=== PATIENT | male | born 1955 | race Caucasian/White ===

== ENCOUNTER 2017-08-11 15:11 | Emergency (ER) | payer OTHER ==
[~2017-08-11] VITALS: Ht 182.9 cm; Wt 127.0 kg
[~2017-08-11 15:11] MED LIST: ACCUPRIL40 MG PO; ACETAMINOPHEN-1 EAC2 ORAL; ASPIR-LOW81 MG PO; BACTRIM DS TAB1 EAC1 ORAL; CIPRO500 MG PO; CIPROFLOXACIN500 M2 ORAL; CLOTRIMAZOLE15 GM TOPIC; DIFLUCAN100 MG ORAL; FLOMAX0.4 MG ORAL; IBUPROFEN600 MG ORAL; KEFLEX500 MG ORAL; LIPITOR40 MG PO; LOTRISONE CREAM15 GM TP; METFORMIN HCL1000 MG PO; METOPROLOL SUCC50 MG PO; NAPHCON-A EYE D15 ML OP; NORCO 10-325 T1 EACH ORAL; NORCO 5-325 TA1 EACH ORAL; PERCOCET 5-3251 EACH ORAL
[2017-08-11 15:23] VITALS: BP 151/88
[2017-08-11] MEDS ORDERED: Methocarbamol 750mg tab ORAL ONE (15:45)
[2017-08-11] MEDS ORDERED: Ketorolac 30mg Inj IM ONE (15:45)
[2017-08-11] MEDS ORDERED: NORCO 5-325 TA1 EACH ORAL (15:49)
[2017-08-11] MEDS ORDERED: ROBAXIN-750750 MG PO (15:49)
[2017-08-11] MEDS ORDERED: TYLENOL325 MG ORAL (15:49)
--- NOTE | 2017-08-11 15:58 | Emergency Room Report ---
History of Present Illness General Chief Complaint: Pain Source: Patient Present Illness HPI 61-year-old male p/w right lower back/buttocks pain for 7 days. Patient states pain starts after walking a long distance.. Pain is localized to right lower back, sharp in nature, radiating down leg. Movement worsens pain. There are no alleviating factors. Patient has not taken any pain medication Patient has experienced this similar pain in the past. Denies trauma. Denies lower extremity weakness/numbness, no bowel/bladder retention or incontinence, saddle anesthesia. Denies fever, chills, abdominal pain, n/v, dysuria/hematuria. No history of IVDA Allergies: Coded Allergies: No Known Allergies (Unverified , 04/16/12) Patient History Past Medical History: see triage record Past Surgical History: none Pertinent Family History: none Reviewed Nursing Documentation: PMH: Agreed, PSxH: Agreed Nursing Documentation-PMH Past Medical History: No History, Except For Hx Hypertension: Yes Hx Pacemaker: No Hx Asthma: No Hx COPD: No Hx Diabetes: Yes Hx Cancer: No Hx Gastrointestinal Problems: Yes - kidney stones Hx Dialysis: No History Of Psychiatric Problem: No Hx Neurological Problems: No Hx Cerebrovascular Accident: No Hx Seizures: No Review of Systems All Other Systems: negative except mentioned in HPI Physical Exam Vital Signs Date Time Temp Pulse Resp B/P (MAP) Pulse Ox O2 Delivery O2 Flow Rate FiO2 08/11/17 15:23 98.0 86 14 151/88 94 Room Air 98.1 Sp02 EP Interpretation: reviewed, normal General Appearance: normal inspection, well appearing, no apparent distress, alert, GCS 15, non-toxic Head: normocephalic, atraumatic Eyes: bilateral eye normal inspection, bilateral eye PERRL, bilateral eye EOMI ENT: normal ENT inspection, normal pharynx, normal voice, moist mucus membranes Neck: normal inspection, full range of motion, supple Respiratory: normal inspection, lungs clear, normal breath sounds, no respiratory distress, no retraction, no wheezing, speaking full sentences, chest symmetrical Cardiovascular #1: normal inspection, regular rate, rhythm, normal capillary refill Cardiovascular #2: 2+ radial (R), 2+ radial (L) Gastrointestinal: normal inspection, non tender, soft, non-distended, no guarding Musculoskeletal: other - Right lower lumbar paraspinal tenderness, no midline tenderness, full range of motion all extremities, gait normal. Patient able to bear wt on both limbs Neurologic: normal inspection, alert, oriented x3, responsive, motor strength/ tone normal, sensory intact, normal gait, speech normal Psychiatric: normal inspection, judgement/insight normal, memory normal Skin: normal inspection, normal color, no rash, warm/dry, well hydrated, normal turgor Medical Decision Making Diagnostic Impression: Primary Impression: Back pain ER Course 61-year-old male p/w right lower back pain for one week DDX: Likely musculoskeletal back pain vs. muscular strain vs. sciatica Lumbar fracture is unlikely given patients age, no midline tenderness, no history of trauma, and that patient is ambulatory. Therefore, at this time no imaging is indicated Serious diagnoses such as cord compression, epidural abscess is unlikely in this patient given the clinical scenario and abscess of neurological symptoms or findings. Patient appears nontoxic. Plan: Toradol, robaxin ER course: Patient has remained nontoxic appearing and ambulatory in the ED. Pain improved w/ medications Disposition: Patient will be discharged to home with prescription of [place], Tylenol, and robaxin. Patient cautioned of the effects of robaxin including possible impairment of physical or mental abilities. Patient was instructed to refrain from operating machinery or driving. Patient is also cautioned on the GI effects of motrin and to take sparingly. Patient verbalized understanding. Strict precautions discussed with patient on when to emergently return to the ED which includes severe/worsening back pain, leg weakness/numbness, urinary retention/incontinence, fever or chills, which may indicate severe illness. Patient is to follow up with their PMD within 5 days. Patient agrees with plan. Please note that this Emergency Department Report was dictated using [employer] technology software, occasionally this can lead to erroneous entry secondary to interpretation by the dictation equipment. Last Vital Signs Date Time Temp Pulse Resp B/P (MAP) Pulse Ox O2 Delivery O2 Flow Rate FiO2 08/11/17 15:52 98.0 08/11/17 15:23 86 14 151/88 94 Room Air Disposition: HOME, SELF-CARE Condition: Improved Scripts Methocarbamol* (ROBAXIN-750*) 750 Mg Tablet 750 MG PO QID, #28 TAB 0 Refills Prov: Teena Hicks M.D. 08/11/17 Acetaminophen (Tylenol) 325 Mg Tablet 650 MG ORAL Q6H Y for Prn Pain/Headache/Temp > 101, #30 TAB 0 Refills Prov: Teena Hicks M.D. 08/11/17 Hydrocodone Bit/Acetaminophen 5-325* (NORCO 5-325*) 1 Each Tablet 1 TAB ORAL Q6H Y for For Pain, #10 TAB 0 Refills Prov: Teena Hicks M.D. 08/11/17 Patient Instructions: Back Pain, Adult, [id number] Additional Instructions: PLEASE FOLLOW UP WITH YOUR DOCTOR IN 1 WEEK YOU MAY NEED PHYSICAL THERAPY Teena Hicks M.D. Aug 11, 2017 15:58
[2017-08-11 16:00] VITALS: BP 151/88
== END 2017-08-11 16:00 | disposition home or self-care (01) ==
LOC: EMR 15:35
DX: M54.5 Low back pain (principal); E11.9 Type 2 diabetes mellitus without complications; I10 Essential (primary) hypertension; Z87.442 Personal history of urinary calculi
CPT/HCPCS: 96372; 99283; J1885

== ENCOUNTER 2017-09-02 16:09 | Emergency (ER) | payer OTHER ==
[~2017-09-02] VITALS: Ht 182.9 cm; Wt 127.0 kg
[~2017-09-02 16:09] MED LIST changes: +ROBAXIN-750750 MG PO; +TYLENOL325 MG ORAL
[2017-09-02 16:25] VITALS: BP 137/76
--- NOTE | 2017-09-02 16:28 | Emergency Room Report ---
History of Present Illness General Chief Complaint: Pain Source: Patient Present Illness HPI 61 yo male patient presents to ER complaining of right lower back and butt pain and difficulty urinating x1 month. Patient reports previously seen in ER 2 weeks ago and diagnosed with sciatica. Patient reports previously had prostate checked out; states everything normal. Reports problem with urinating if he thinks to hard about it; reports no difficulty with urinating if he is relaxed. Denies dysuria, hematuria, discharge, rash. Reports back back and butt pain that radiates down to his knee. Denies lower leg or foot pain. Reports pain worsens with walking. Reports pain feels better when sitting, laying down or not moving. Denies recent weight loss or drug use. Denies chest pain, SOB, fever, abdominal pain. Denies hx of trauma. Denies calf pain. Allergies: Coded Allergies: No Known Allergies (Unverified , 04/16/12) Patient History Past Medical History: see triage record Reviewed Nursing Documentation: PMH: Agreed, PSxH: Agreed Nursing Documentation-PMH Hx Hypertension: Yes Hx Pacemaker: No Hx Asthma: No Hx COPD: No Hx Diabetes: Yes Hx Cancer: No Hx Gastrointestinal Problems: Yes - kidney stones Hx Dialysis: No Hx Neurological Problems: No Hx Cerebrovascular Accident: No Hx Seizures: No Review of Systems All Other Systems: negative except mentioned in HPI Physical Exam Vital Signs Date Time Temp Pulse Resp B/P (MAP) Pulse Ox O2 Delivery O2 Flow Rate FiO2 09/02/17 16:16 97.1 77 22 137/76 95 Room Air 97.2 Sp02 EP Interpretation: reviewed, normal General Appearance: well appearing, no apparent distress, alert, GCS 15 Head: normocephalic, atraumatic Eyes: bilateral eye normal inspection, bilateral eye PERRL ENT: hearing grossly normal, normal pharynx, no angioedema, normal voice, uvula midline, moist mucus membranes Neck: full range of motion Respiratory: lungs clear, normal breath sounds, no rhonchi, no respiratory distress, no accessory muscle use, no wheezing, speaking full sentences Cardiovascular #1: regular rate, rhythm, normal capillary refill, edema Cardiovascular #2: 2+ dorsalis pedis (R), 2+ dorsalis pedis (L) Gastrointestinal: non tender, soft, no mass, non-distended, no guarding, no rebound Genitourinary: no CVA tenderness Musculoskeletal: back normal, digits/nails normal, gait/station normal, normal range of motion, non-tender, no calf tenderness, pelvis stable, Reynaldo's Sign negative, other Neurologic: alert, oriented x3, responsive, motor strength/tone normal, SLR negative, sensory intact Psychiatric: mood/affect normal Skin: no rash Lymphatic: no adenopathy Medical Decision Making PA Attestation Dr. Arnold is my supervising Physician whom patient management has been discussed with. Diagnostic Impression: Primary Impression: UTI Additional Impressions: Leg edema Back pain Prostate hypertrophy Nephrolithiasis ER Course Pt presents to ED c/o difficulty urinating and back pain. DDX considered but are not limited to BPH, prostatitis, cystitis, pyelonephritis , pyelonephritis, stenosis, sprain, strain, fracture. VITAL SIGNS WNL, patient is afebrile. PE patient has full ROM of hip and leg. Reports pain worse with walking; pain radiates down leg to knee. Ordered UA and CT abdomen/pelvis. ER COURSE: CT shows multiple findings. Degenerative changes of lumbar spine and hips. Followup with ortho for pain management. Right nephrolithiasis. Nonspecific perinephric stranding. Bladder calcifications, may be chronic or recently passed stones. Mildly thickened bladder which may be chronic versus cystitis. Prominent prostate. Followup with primary care provider and urology. UA shows possible infection. With CT findings, will treat with abx for infection. Followup with urology. Results discussed with patient. Bilateral lower leg edema. No erythema, negative Homans sign, no calf pain, no chest pain, SOB, or hemoptysis, low suspicion for DVT. Followup with cardiology and vascular surgeon for further treatment and diagnosis. Patient seen and evaluated by Dr. Arnold, agrees with treatment and plan. Patient provided with pain medication prior to discharge. Toradol and Lidocaine patch. Patient reports he will walk home. DISCHARGE: Rx provided for Lidocaine patches Rx provided for Keflex for UTI Take Tylenol at home as previously prescribed for pain treatment. At this time pt is stable for d/c to home. Patient resting comfortably, in no acute distress, nontoxic appearing, laughing and talking without difficulty. CT results provided to patient. Will provide with patient care instructions and any necessary prescriptions. Patient to take BPH medications as instructed. Patient instructed to follow up with PCP within 3 -5 days and seek referral to urologist. Instructed patient to followup with ortho for further treatment and referral. Followup with cardiology and vascular surgeon for leg edema. Continue to wear compression stockings. Care plan and follow-up instructions provided. Patient questions asked and answered. Patient reports understanding and agreement to treatment plan. ER precautions given. Patient instructed to return to ER immediately for any new or worsening of symptoms including but not limited to fever, chest pain, shortness of breath, unable to urinate, hematuria. Labs Test 09/02/17 16:25 Urine Color Yellow Urine Appearance Clear Urine pH 5 (4.5-8.0) Urine Specific [place] 1.020 (1.005-1.035) Urine Protein 3+ (NEGATIVE) Urine Glucose (UA) 3+ (NEGATIVE) Urine Ketones Negative (NEGATIVE) Urine Occult Blood 2+ (NEGATIVE) Urine Nitrite Negative (NEGATIVE) Urine Bilirubin Negative (NEGATIVE) Urine Urobilinogen 1 MG/DL (0.0-1.0) Urine Leukocyte Esterase Negative (NEGATIVE) Urine RBC 5-10 /HPF (0 - 0) Urine WBC 0-2 /HPF (0 - 0) Urine Squamous Epithelial Cells Occasional /LPF Urine Bacteria Few /HPF (NONE) CT/MRI/US Diagnostic Results CT/MRI/US Diagnostic Results : Imaging Test Ordered: CT abdomen pelvis Impression STATRAD No hydronephrosis or ureteral calculus. Right nephrolithiasis. Nonspecific perinephric stranding. Renal cysts/lesions, followup per final report. Bladder calcifications, may be chronic or recently passed stones. Mildly thickened bladder which may be chronic versus cystitis. Prominent prostate. No appendicitis, SBO, or diverticulitis. Moderate colonic stool. Nonspecific mild mesenteric edema. Unremarkable gallbladder. Fatty liver. Chronic pancreatic calcifications. Last Vital Signs Date Time Temp Pulse Resp B/P (MAP) Pulse Ox O2 Delivery O2 Flow Rate FiO2 09/02/17 16:25 97.2 22 137/76 95 Room Air 97.2 09/02/17 16:16 77 Disposition: HOME, SELF-CARE Condition: Stable Scripts Lidocaine (Lidocaine) 1 Each Adh..patch 700 MG TP DAILY for 7 Days, #7 PATCH Prov: Pranay Clayton P.A. 09/02/17 Cephalexin* (KEFLEX*) 500 Mg Capsule 500 MG ORAL EVERY 12 HOURS for 7 Days, #14 CAP 0 Refills Prov: Pranay Clayton.AVenkata 09/02/17 Patient Instructions: Benign Prostatic Hypertrophy, Chronic Back Pain, Edema, [id number], Kidney Stones, [id number], Urinary Tract Infection, [id number] Additional Instructions: Patient instructed to follow up with primary care provider and discuss further referral to orthopedics. Need MRI of spine, pelvis, and hips for further diagnosis; performed by ortho. Followup with cardiology and vascular surgeon for leg edema. Will treat for UTI. Followup with primary care provider and.or urology for prostate evaluation. Patient instructed on RICE method: rest, ice, compression, elevation. Patient instructed to WBAT. Take medications as directed. Patient questions asked and answered. ER precautions given, patient instructed to return to ER immediately for any new or worsening of symptoms. Pranay Clayton Sep 02, 2017 16:28
[2017-09-02 17:22] LABS: APPEARANCE,URINE CLEAR; BILIRUBIN, URINE NEGATIVE (NEGATIVE); GLUCOSE, URINE (UA) 3+ (NEGATIVE); KETONES,URINE NEGATIVE (NEGATIVE); LEUKOCYTE ESTERASE ,URINE NEGATIVE (NEGATIVE); NITRITE,URINE NEGATIVE (NEGATIVE); PH,URINE 5 (4.5-8.0); PROTEIN,URINE 3+ (NEGATIVE); UROBILINOGEN,URINE 1 MG/DL (0.0-1.0)
[2017-09-02 17:23] LABS: COLOR,URINE YELLOW
[2017-09-02] MEDS ORDERED: LIDOCAINE700 M1 TP (18:21)
[2017-09-02] MEDS ORDERED: CEPHALEXIN500 MG ORAL (18:21)
[2017-09-02] MEDS ORDERED: Ketorolac 30mg Inj IM ONE (18:30)
[2017-09-02 18:40] VITALS: BP 135/70
--- NOTE | 2017-09-03 09:07 | Diagnostic Imaging Report ---
Indication: Right flank pain Technique: Spiral acquisitions obtained through the abdomen and pelvis. No oral contrast utilized, per emergency room physician request No IV contrast utilized, per referring physician request.. Multiplanar reconstructions were generated. Total dose length product 1249.43 mGycm. CTDIvol(s) 19.51 mGy. Dose reduction achieved using automated exposure control Comparison: 08/04/2015 Findings: There is been interim development of an 8 mm calculus in the lower pole of the right renal collecting system. No other renal calculi demonstrated. No ureteral calculi, hydronephrosis, or hydroureter. 2 calcifications are seen dependent within the bladder, all way from the ureteral orifices, one measuring 9 mm diameter, the other measuring 3 no liters in diameter. There may be other tiny punctate calcifications as well. These appear to be within the bladder lumen although the mural or prostatic capsular. These are not evident on the prior study. Lack of IV contrast limits assessment of the renal parenchyma. There are bilateral cysts as well as bilateral subcentimeter low-attenuation lesions which are too small to characterize. The prostate is mildly enlarged. Small but otherwise normal appendix is demonstrated. There are scattered colonic diverticula. No evidence of diverticulitis. No small bowel distention. No free or loculated intraperitoneal air or fluid is evident. Lack of IV contrast limits assessment of the other solid organs. The liver is somewhat hypoattenuating, consistent with fatty change. The gallbladder, bile ducts, spleen are unremarkable. The pancreas contains scattered calcifications. The adrenals are unremarkable. No mesenteric or retroperitoneal mass or adenopathy. No pelvic mass or adenopathy. The included lung bases are clear. The bones demonstrate mild degenerative spondylosis changes. Impression: 8 mm right lower pole nonobstructive calculus, new since prior study of 08/04/2015 Multiple bladder calcifications, probably passed renal calculi, either recent or remote. These could also represent de carmine intraluminal calculi. These could less likely also represent chronic mural or prostatic calcifications No acute abnormality Diverticulosis. No evidence of diverticulitis Bilateral renal cysts. Bilateral subcentimeter renal lesions which are too small to characterize, no further follow-up necessary Prostatomegaly Colonic diverticulosis. No evidence of diverticulitis Fatty liver Pancreatic calcification, may indicate prior chronic calcifying pancreatitis Degenerative spondylosis This agrees with the preliminary interpretation provided overnight by [facility]. The CT scanner at [facility] is accredited by the [employer] and the scans are performed using protocols designed to limit radiation exposure to as low as reasonably achievable to attain images of sufficient resolution adequate for diagnostic evaluation.
== END 2017-09-02 18:40 | disposition home or self-care (01) ==
LOC: EMR 16:30
DX: N39.0 Urinary tract infection, site not specified (principal); R60.0 Localized edema; N40.0 Benign prostatic hyperplasia without lower urinary tract symptoms; K57.30 Diverticulosis of large intestine without perforation or abscess without bleeding; N28.1 Cyst of kidney, acquired; K76.0 Fatty (change of) liver, not elsewhere classified; M47.816 Spondylosis without myelopathy or radiculopathy, lumbar region; N20.0 Calculus of kidney
CPT/HCPCS: 74176; 81003; 96372; 99284; J1885

== ENCOUNTER 2018-08-03 08:45 | Emergency (ER) | payer OTHER ==
[~2018-08-03] VITALS: Ht 182.9 cm; Wt 129.3 kg
[~2018-08-03 08:45] MED LIST changes: +CEPHALEXIN500 MG ORAL; +LIDOCAINE700 M1 TP
--- NOTE | 2018-08-03 08:50 | NUR ---
ED Nurse Note: Patient walked in to ED from home due to right lower leg swelling for couple weeks. denies SOB or pain at this time.
[2018-08-03 08:55] VITALS: BP 136/69
[2018-08-03] MEDS ORDERED: LANTUS SOL100 UNIT/1 SUBQ (09:09)
[2018-08-03] MEDS ORDERED: AMLODIPINE BESY10 MG ORAL (09:09)
[2018-08-03] MEDS ORDERED: GABAPENTIN300 MG ORAL (09:09)
[2018-08-03] MEDS ORDERED: LISINOPRIL40 MG ORAL (09:09)
[2018-08-03] MEDS ORDERED: HYDROCHLOROTHIA25 MG ORAL (09:09)
[2018-08-03] MEDS ORDERED: GLIMEPIRIDE4 MG ORAL (09:09)
--- NOTE | 2018-08-03 09:09 | NUR ---
ED Nurse Note: Patient is A&O x4, V/S stable with no s/s of acute distress noted at this time. Pt connected to the cardiac technologist. ERMD at bedside evaluating the pt. Will continue to monitor the pt.
[2018-08-03] MEDS ORDERED: DEBROX15 M1 BOTH EARS (11:12)
[2018-08-03] MEDS ORDERED: CEPHALEXIN500 MG ORAL (11:12)
[2018-08-03 11:15] VITALS: BP 122/78
--- NOTE | 2018-08-03 11:16 | NUR ---
ED Nurse Note: Patient is being discharged from medical care with prescriptions. Awake, alert and oriented x3. ID band were removed. Patient ambulated out with all personal belongings with steady gait.
--- NOTE | 2018-08-03 11:46 | Emergency Room Report ---
History of Present Illness General Chief Complaint: Edema Source: Patient, Medical Record Present Illness HPI 62-year-old male presents ED for evaluation. Complaining of right leg swelling. Has been swollen for approximately one week. Denies any pain. Denies any fevers or chills. Denies any chest pain or shortness of breath. Denies any recent travel or prolonged immobility. No other aggravating relieving factors. Denies any other associated symptoms Allergies: Coded Allergies: No Known Allergies (Unverified , 04/16/12) Patient History Past Medical History: DM, HTN Past Surgical History: none Pertinent Family History: none Social History: Denies: smoking, alcohol use, drug use Immunizations: UTD Reviewed Nursing Documentation: PMH: Agreed; PSxH: Agreed Nursing Documentation-PMH Past Medical History: No History, Except For Hx Cardiac Problems: No - hyperlipidemia Hx Hypertension: Yes Hx Pacemaker: No Hx Asthma: No Hx COPD: No Hx Diabetes: Yes Hx Cancer: No Hx Gastrointestinal Problems: Yes - kidney stones Hx Dialysis: No Hx Neurological Problems: No Hx Cerebrovascular Accident: No Hx Seizures: No Review of Systems All Other Systems: negative except mentioned in HPI Physical Exam Vital Signs Date Time Temp Pulse Resp B/P (MAP) Pulse Ox O2 Delivery O2 Flow Rate FiO2 08/03/18 08:50 98.4 63 16 136/69 97 Room Air Sp02 EP Interpretation: reviewed, normal General Appearance: no apparent distress, alert, GCS 15, non-toxic Head: normocephalic Eyes: bilateral eye normal inspection, bilateral eye PERRL ENT: normal ENT inspection Neck: normal inspection Respiratory: normal inspection Cardiovascular #1: normal inspection Gastrointestinal: normal inspection Rectal: deferred Genitourinary: no CVA tenderness Musculoskeletal: tender - RLE Neurologic: alert, oriented x3, responsive, motor strength/tone normal, sensory intact, speech normal Psychiatric: normal inspection Skin: normal inspection Lymphatic: normal inspection Medical Decision Making Diagnostic Impression: Primary Impression: Leg swelling ER Course Hospital Course 62-year-old male present ED complaining of RLE swelling. no SOB. Differential diagnoses include: DVT, cellulitis, contusion, abscess Clinical course Patient placed on stretcher after initial history and physical I ordered DVT ultrasound. Doppler ultrasound shows no evidence of DVT Consideration for cellulitis. Patient is a diabetic. There is some warmth on the right extremity compared to the left. We'll discharge with antibiotics. Patient is not short of breath. Vital stable. Afebrile. Safe for discharge and close outpatient follow-up. Patient states he will follow-up with his PMD I. I feel this is a highly complex case requiring extensive working including EKG/Rhythm strip, Xray/CT/US, Blood/urine lab work, repeat exams while in ED, and administration of strong opiates/narcotics for pain control, admission to hospital or close patient follow up. Diagnosis - leg swelling Stable and discharged to home with Rx Keflex. warm compresses. elevation. Followup with PMD. Return to ED if symptoms recur or worsen CT/MRI/US Diagnostic Results CT/MRI/US Diagnostic Results : Imaging Test Ordered: DVT US Impression no evidence of DVT Last Vital Signs Date Time Temp Pulse Resp B/P (MAP) Pulse Ox O2 Delivery O2 Flow Rate FiO2 08/03/18 11:15 98.2 66 18 122/78 99 Room Air Status: improved Disposition: HOME, SELF-CARE Condition: Stable Scripts Carbamide Peroxide (DEBROX) 15 Ml Drops 5 DROP BOTH EARS TWICE A DAY for 4 Days, ML 0 Refills Prov: Bon Rocha MD 08/03/18 Cephalexin* (KEFLEX*) 500 Mg Capsule 500 MG ORAL EVERY 6 HOURS for 7 Days, CAP Prov: Bon Rocha MD 08/03/18 Patient Instructions: Cerumen Impaction, Peripheral Edema Bon Rocha MD Aug 03, 2018 11:46
== END 2018-08-03 11:17 | disposition home or self-care (01) ==
LOC: EMR 09:07
DX: M79.89 Other specified soft tissue disorders (principal); M79.604 Pain in right leg; I10 Essential (primary) hypertension; E78.5 Hyperlipidemia, unspecified; E11.9 Type 2 diabetes mellitus without complications; Z87.442 Personal history of urinary calculi
CPT/HCPCS: 93971; 99284

== ENCOUNTER 2018-09-16 13:54 | Emergency (ER) | payer OTHER ==
[~2018-09-16] VITALS: Ht 182.9 cm; Wt 131.5 kg
[~2018-09-16 13:54] MED LIST changes: +AMLODIPINE BESY10 MG ORAL; +DEBROX15 M1 BOTH EARS; +GABAPENTIN300 MG ORAL; +GLIMEPIRIDE4 MG ORAL; +HYDROCHLOROTHIA25 MG ORAL; +LANTUS SOL100 UNIT/1 SUBQ; +LISINOPRIL40 MG ORAL
[2018-09-16] MEDS ORDERED: ACETAMINOPHEN-1 EAC1 ORAL (15:03)
[2018-09-16 15:07] VITALS: BP 132/74
[2018-09-16 15:26] VITALS: BP 122/75
--- NOTE | 2018-09-16 15:27 | NUR ---
ER DISCHARGE NOTE: Patient is cleared to be discharged per ERMD, pt is aox4, on room air, with stable vital signs. pt was given dc and prescription instructions, pt was able to verbalize understanding, pt id band removed. pt is able to ambulate with steady gait. pt took all belongings. gave a disc copy of the xray
--- NOTE | 2018-09-16 16:17 | Emergency Room Report ---
History of Present Illness General Chief Complaint: Pain Source: Patient Present Illness HPI 62-year-old male presents ED for evaluation. Patient complaining of right knee pain and right calf pain and swelling. States that he was seen here last month for calf pain. Had ultrasound which was negative for DVT. Was subsequently discharged. Patient states swelling has not completely resolved. States that he also twisted his knee the other day while walking down the stairs. Pain is throbbing, 7 out of 10, nonradiating. No other aggravating relieving factors. Denies any other associated symptoms Allergies: Coded Allergies: No Known Allergies (Unverified , 09/16/18) Patient History Past Medical History: DM, HTN, other - kidney stones Past Surgical History: none Pertinent Family History: none Social History: Denies: smoking, alcohol use, drug use Immunizations: UTD Reviewed Nursing Documentation: PMH: Agreed; PSxH: Agreed Nursing Documentation-PMH Past Medical History: No History, Except For Hx Cardiac Problems: No - hyperlipidemia Hx Hypertension: Yes Hx Pacemaker: No Hx Asthma: No Hx COPD: No Hx Diabetes: Yes Hx Cancer: No Hx Gastrointestinal Problems: Yes - kidney stones Hx Dialysis: No Hx Neurological Problems: No Hx Cerebrovascular Accident: No Hx Seizures: No Review of Systems All Other Systems: negative except mentioned in HPI Physical Exam Vital Signs Date Time Temp Pulse Resp B/P (MAP) Pulse Ox O2 Delivery O2 Flow Rate FiO2 09/16/18 14:01 97.9 67 16 132/74 93 Room Air Sp02 EP Interpretation: reviewed, normal General Appearance: no apparent distress, alert, GCS 15, non-toxic Head: normocephalic Eyes: bilateral eye normal inspection, bilateral eye PERRL ENT: normal ENT inspection Neck: normal inspection Respiratory: normal inspection Cardiovascular #1: normal inspection Gastrointestinal: normal inspection Rectal: deferred Genitourinary: no CVA tenderness Musculoskeletal: swelling - R knee, R calf Neurologic: alert, oriented x3, responsive, motor strength/tone normal, sensory intact, speech normal Psychiatric: normal inspection Skin: normal inspection Lymphatic: normal inspection Procedures Splinting Splinting : Consent: Verbal Pre-Made Type: SHIVAM wrap Pre-Proc Neuro Vasc Exam: normal Post-Proc Neuro Vasc Exam: normal Patient Tolerated: Well Complications: None Medical Decision Making Diagnostic Impression: Primary Impression: Knee pain Qualified Codes: M25.561 - Pain in right knee ER Course Hospital Course 62-year-old M presents to ED complaining of R knee pain s/p trip and fall Differential diagnoses include: Fracture, dislocation, sprain, contusion Clinical course Patient placed on stretcher. After initial history and physical, I ordered Xrays of R knee Xrays prelim read shows no acute fracture/dislocation. placed in shivam wrap discussed findings with patient. On prior visit I saw the patient and ordered venous duplex which was negative. I have no suspicion for DVT at this time. We will discharge and provided with otho referral Diagnosis - knee sprain Stable and discharged to home with prescription for tylenol #3. apply ice, keep elevated. weight bear as tolerated. Followup with PMD. Return to ED if symptoms recur or worsen Other X-Ray Diagnostic Results Other X-Ray Diagnostic Results : X-Ray ordered: R knee # of Views/Limited Vs Complete: 3 View Indication: Pain EP Interpretation: Yes Interpretation: no dislocation, no soft tissue swelling, no fractures Impression: No acute disease Electronically Signed by: Electronically signed by Bon Rocha MD Last Vital Signs Date Time Temp Pulse Resp B/P (MAP) Pulse Ox O2 Delivery O2 Flow Rate FiO2 09/16/18 15:26 98.0 70 15 122/75 96 Room Air Status: improved Disposition: HOME, SELF-CARE Condition: Stable Scripts Acetaminophen With Codeine (T#3) (TYLENOL #3 TAB*) Y Tab 1 TAB ORAL Q8H PRN for For Pain, #10 TAB Prov: Bon Rocha MD 09/16/18 [facility]errals: [facility] Open 24 hour /7 days a week by Appointment Only [address] [facility] [address] Patient Instructions: Knee Pain, [id number] Bon Rocha MD Sep 16, 2018 16:17
--- NOTE | 2018-09-17 19:15 | Diagnostic Imaging Report ---
Indication: Pain Knee pain/trauma 3 views of the right knee were obtained. Findings: No acute fracture, malalignment, or joint effusion are identified. Joint space is relatively well-maintained. There is subcutaneous edema present. Impression: Negative for acute findings. Soft tissue swelling.
== END 2018-09-16 15:28 | disposition home or self-care (01) ==
LOC: EMR 14:20
DX: M25.561 Pain in right knee (principal); I10 Essential (primary) hypertension; E78.5 Hyperlipidemia, unspecified; E11.9 Type 2 diabetes mellitus without complications; Z87.442 Personal history of urinary calculi; S83.91XA Sprain of unspecified site of right knee, initial encounter; X50.1XXA Overexertion from prolonged static or awkward postures, initial encounter; Y92.89 Other specified places as the place of occurrence of the external cause
CPT/HCPCS: 99283

== ENCOUNTER 2018-12-31 14:45 | Emergency (ER) | payer OTHER ==
[~2018-12-31] VITALS: Ht 177.8 cm; Wt 127.0 kg
[~2018-12-31 14:45] MED LIST changes: +ACETAMINOPHEN-1 EAC1 ORAL
--- NOTE | 2018-12-31 14:56 | NUR ---
ED Nurse Note: Patient came from home c/o bilateral hands blisters started 2 days ago. Patient is aaox4. Denies new product/medication use.
[2018-12-31 15:00] VITALS: BP 120/63
--- NOTE | 2018-12-31 15:46 | NUR ---
ED Nurse Note: ERPA seeing pt at bedside.
--- NOTE | 2018-12-31 16:31 | Emergency Room Report ---
History of Present Illness General Chief Complaint: Skin Rash/Abscess Source: Patient Present Illness HPI 63-year-old male presents to the emergency department complaining of 5 out of 10 severity painful burning ulcerative rash to the palms of the bilateral hands x2 days. Patient denies recent illness, recent travel, history of STI, fevers or chills. Pt. denies having swollen tender lymph nodes or lesions/rashes elsewhere on the body. Denies new medications or body washes or creams. Denies itchiness. Denies swelling of the lips, tongue , throat or airway. Denies wheezing, or shortness of breath. Denies ill contacts or contacts with similar symptoms. Denies blisters, oral lesions, or sloughing of the skin. Allergies: Coded Allergies: No Known Allergies (Unverified , 09/16/18) Patient History Past Medical History: see triage record Past Surgical History: none Pertinent Family History: none Reviewed Nursing Documentation: PMH: Agreed; PSxH: Agreed Nursing Documentation-PMH Past Medical History: No History, Except For Hx Cardiac Problems: No - hyperlipidemia Hx Hypertension: Yes Hx Pacemaker: No Hx Asthma: No Hx COPD: No Hx Diabetes: Yes Hx Cancer: No Hx Gastrointestinal Problems: Yes - kidney stones Hx Dialysis: No Hx Neurological Problems: No Hx Cerebrovascular Accident: No Hx Seizures: No Review of Systems All Other Systems: negative except mentioned in HPI Physical Exam Vital Signs Date Time Temp Pulse Resp B/P (MAP) Pulse Ox O2 Delivery O2 Flow Rate FiO2 12/31/18 14:48 98.2 70 17 120/63 (82) 98 Room Air Sp02 EP Interpretation: reviewed, normal General Appearance: no apparent distress, alert, GCS 15, non-toxic Head: normocephalic, atraumatic Eyes: bilateral eye normal inspection, bilateral eye PERRL ENT: hearing grossly normal, normal pharynx, no angioedema, normal voice Neck: full range of motion Respiratory: lungs clear, normal breath sounds, speaking full sentences Cardiovascular #1: regular rate, rhythm, normal capillary refill, edema - unilateral non-pitting LE edema-chronic Cardiovascular #2: 2+ radial (R), 2+ radial (L) Musculoskeletal: back normal, gait/station normal, normal range of motion, non- tender Neurologic: alert, oriented x3, responsive, motor strength/tone normal, sensory intact, normal gait, speech normal, grossly normal Psychiatric: judgement/insight normal Skin: rash - ulcerative rash to the upper extremities involving the palms bilaterally. no lesions elsewhere, no blisters or vesicles, negative niklosky, mild surrounding erythema to some of the ulcers, no excoriations. no pus or d/c , no crusting. Lymphatic: no adenopathy Medical Decision Making PA Attestation Dr. Dueñas is my supervising Physician whom patient management has been discussed with. Diagnostic Impression: Primary Impression: Rash and other nonspecific skin eruption ER Course 63-year-old male presents to the emergency department complaining of 5 out of 10 severity painful burning ulcerative rash to the palms of the bilateral hands x2 days. Patient denies recent illness, recent travel, history of STI, fevers or chills. Pt. denies having swollen tender lymph nodes or lesions/rashes elsewhere on the body. Denies new medications or body washes or creams. Denies swelling of the lips, tongue , throat or airway. Denies wheezing, or shortness of breath. Denies ill contacts or contacts with similar symptoms. Denies blisters, oral lesions, or sloughing of the skin. Ddx considered but are not limited to cellulitis, scabies, shingles, varicella, dermatitis, urticaria, eczema, tinea, viral exanthem, HFM, SJS, Syphilis Vital signs: are WNL, pt. is afebrile H&PE are most consistent with ulcerative rash on the palms of hands bilaterally. suspicion for syphilis ORDERS: -RPR: Pending- non-reactive ED INTERVENTIONS: None required at this time. Pt. will be treated with oral doxycycline as this will cover most skin bacteria including MSSI/MRSA and is also second line treatment for syphilis while rpr results are pending. DISCHARGE: At this time pt. is stable for d/c to home. Will provide printed patient care instructions, and any necessary prescriptions. Care plan and follow up instructions have been discussed with the patient prior to discharge. Last Vital Signs Date Time Temp Pulse Resp B/P (MAP) Pulse Ox O2 Delivery O2 Flow Rate FiO2 12/31/18 15:00 98.2 78 17 120/63 98 Room Air Disposition: HOME, SELF-CARE Condition: Stable Scripts Doxycycline Hyclate* (VIBRAMYCIN*) 100 Mg Capsule 100 MG ORAL EVERY 12 HOURS for 7 Days, #14 CAP 0 Refills Prov: Deepthi Monique 12/31/18 Mupirocin* (MUPIROCIN*) 22 Gm Oint...g. 1 APPLIC TOPIC THREE TIMES A DAY, #22 GM Prov: Deepthi Monique 12/31/18 Patient Instructions: Rash Additional Instructions: Take medications as directed. Follow up with a Primary Care Provider in 3-5 days for DERMATOLOGY and Infectious disease REFERRAL, even if your symptoms have resolved. --Please review list of primary care clinics, if you do not already have a primary care provider Return sooner to ED if new symptoms occur, or current symptoms become worse. - Please note that this Emergency Department Report was dictated using [employer] agent technology software, occasionally this can lead to erroneous entry secondary to interpretation by the dictation equipment. Deepthi Monique Dec 31, 2018 16:31
[2018-12-31] MEDS ORDERED: MUPIROCIN22 GM TOPIC (16:33)
[2018-12-31] MEDS ORDERED: VIBRAMYCIN100 MG ORAL (16:33)
--- NOTE | 2018-12-31 16:50 | NUR ---
ED Nurse Note: Pt cleared by health care Provider for discharge. DC instructions/prescription was given and explained to pt and verbalized understanding of teachings. ID band removed. Pt is AAO x4, ambulatory and left with all personal belongings in stable condition.
[2018-12-31 16:54] VITALS: BP 125/65
== END 2018-12-31 16:50 | disposition home or self-care (01) ==
LOC: EMR 15:45
DX: R21 Rash and other nonspecific skin eruption (principal); E78.5 Hyperlipidemia, unspecified; I10 Essential (primary) hypertension; Z87.442 Personal history of urinary calculi; E11.9 Type 2 diabetes mellitus without complications
CPT/HCPCS: 86592; 99283

== ENCOUNTER 2019-08-14 14:33 | Emergency (ER) | payer OTHER ==
[~2019-08-14] VITALS: Ht 180.3 cm; Wt 122.5 kg
[~2019-08-14 14:33] MED LIST changes: +MUPIROCIN22 GM TOPIC; +VIBRAMYCIN100 MG ORAL
[2019-08-14 15:20] VITALS: BP 139/71
--- NOTE | 2019-08-14 15:22 | NUR ---
ED Nurse Note:pt. came with rash on right antecubital area
--- NOTE | 2019-08-14 15:56 | Emergency Room Report ---
History of Present Illness General Chief Complaint: Skin Rash/Abscess Present Illness HPI 63 YO male presents to the ED c/o 02/01 in severity pain, swelling, and erythema of the right AC area progressive x 3-4 days. Pt. with hx of DM. he reports symptoms began as a bug bite. Pt. reports he has been draining pus from the wound. Denies fevers, chills, bleeding, vesicles or blistering. He denies itching. Denies lesions elsewhere on the body. UTD with tetanus. Allergies: Coded Allergies: No Known Allergies (Unverified , 09/16/18) Patient History Past Medical History: see triage record Past Surgical History: none Pertinent Family History: none Reviewed Nursing Documentation: PMH: Agreed; PSxH: Agreed Nursing Documentation-PMH Hx Cardiac Problems: No - hyperlipidemia Hx Hypertension: Yes Hx Pacemaker: No Hx Asthma: No Hx COPD: No Hx Diabetes: Yes Hx Cancer: No Hx Gastrointestinal Problems: Yes - kidney stones Hx Dialysis: No Hx Neurological Problems: No Hx Cerebrovascular Accident: No Hx Seizures: No Review of Systems All Other Systems: negative except mentioned in HPI Physical Exam Vital Signs Date Time Temp Pulse Resp B/P (MAP) Pulse Ox O2 Delivery O2 Flow Rate FiO2 08/14/19 14:47 97.3 61 18 139/71 (93) 95 Room Air Sp02 EP Interpretation: reviewed, normal General Appearance: no apparent distress, alert, GCS 15, non-toxic Head: normocephalic, atraumatic Eyes: bilateral eye normal inspection, bilateral eye PERRL ENT: hearing grossly normal, normal voice Neck: full range of motion Respiratory: lungs clear, normal breath sounds, speaking full sentences Cardiovascular #1: regular rate, rhythm, normal capillary refill Cardiovascular #2: 2+ radial (R) Musculoskeletal: normal range of motion, gait/station normal, non-tender Neurologic: alert, motor strength/tone normal, oriented x3, sensory intact, responsive, speech normal Psychiatric: judgement/insight normal Skin: other - erythema, warmth and moderate induration in a 2.5cm area on the right ac. No blisters, vesicles, or crusting. No palpable fluctuance. Lymphatic: no adenopathy Medical Decision Making PA Attestation Dr. Arrieta is my supervising Physician whom patient management has been discussed with. Diagnostic Impression: Primary Impression: Cellulitis Qualified Codes: L03.90 - Cellulitis, unspecified ER Course 63 YO male presents to the ED c/o 02/01 in severity pain, swelling, and erythema of the right AC area progressive x 3-4 days. Pt. with hx of DM. he reports symptoms began as a bug bite. Pt. reports he has been draining pus from the wound. Denies fevers, chills, bleeding, vesicles or blistering. He denies itching. Denies lesions elsewhere on the body. UTD with tetanus. Ddx considered but are not limited to cellulitis, abscess, cystic acne, necrotizing fasciitis, insect bite. Vital signs: are WNL, pt. is afebrile H&PE are most consistent with Cellulitis of the right AC in immune compromised pt. ORDERS: none required at this time, the diagnosis is clinical -Bedside US of the Soft tissues/muscles does not demonstrate abscess. Cobble stoning of the ST suggest cellulitis. ED INTERVENTIONS: - None at this time DISCHARGE: At this time pt. is stable for d/c to home. Will provide printed patient care instructions, and any necessary prescriptions. Care plan and follow up instructions have been discussed with the patient prior to discharge. Last Vital Signs Date Time Temp Pulse Resp B/P (MAP) Pulse Ox O2 Delivery O2 Flow Rate FiO2 08/14/19 15:20 97.3 18 139/71 95 Room Air 08/14/19 14:47 61 Disposition: HOME, SELF-CARE Condition: Stable Scripts Mupirocin* (MUPIROCIN*) 22 Gm Oint...g. 1 APPLIC TOPIC THREE TIMES A DAY, #22 GM Prov: Deepthi Monique 08/14/19 Clindamycin Hcl (CLINDAMYCIN HCL) 300 Mg Capsule 300 MG ORAL FOUR TIMES A DAY for 7 Days, #28 CAP Prov: Deepthi Monique 08/14/19 Referrals: [facility] Patient Instructions: Cellulitis, [id number] Additional Instructions: Take medications as directed. Follow up with a Primary Care Provider in 3-5 days, even if your symptoms have resolved. --Please review list of primary care clinics, if you do not already have a primary care provider Return sooner to ED if new symptoms occur, or current symptoms become worse. - Please note that this Emergency Department Report was dictated using [employer] and outreach coordinator technology software, occasionally this can lead to erroneous entry secondary to interpretation by the dictation equipment. Discharge Deepthi Monique Aug 14, 2019 15:56
[2019-08-14] MEDS ORDERED: CLINDAMYCIN HC300 MG ORAL (15:58)
[2019-08-14] MEDS ORDERED: MUPIROCIN22 GM TOPIC (15:58)
[2019-08-14 16:10] VITALS: BP 139/71
--- NOTE | 2019-08-14 16:10 | NUR ---
ER DISCHARGE NOTE: Patient is cleared to be discharged per ERMD, pt is aox4, on room air, with stable vital signs. pt was given dc and prescription instructions, pt was able to verbalize understanding, pt is able to ambulate with steady gait. pt took all belongings.
== END 2019-08-14 16:15 | disposition home or self-care (01) ==
LOC: EMR 15:05
DX: L03.113 Cellulitis of right upper limb (principal); E11.8 Type 2 diabetes mellitus with unspecified complications; I10 Essential (primary) hypertension; Z87.442 Personal history of urinary calculi
CPT/HCPCS: 99282